=== PATIENT | female | born 1995 | race Caucasian/White ===

== ENCOUNTER 2018-11-07 02:56 | Emergency (ER) | payer OTHER ==
[2018-11-07] MEDS ORDERED: NORMAL SALINE 1000 ML 1,000 ML IV ONE ×2 (03:26→05:46)
[2018-11-07] MEDS ORDERED: ONDANSETRON HCL INJ/PF 4 MG/2 ML SDV IV ONE (03:27)
--- NOTE | 2018-11-07 03:34 | ER Document Report ---
ED General - General Chief Complaint: Dizziness Stated Complaint: DIZZINESS Time Seen by Provider: 11/07/18 03:26 Information source: Patient Notes: Patient is a 22-year-old female presents to the emergency department with a chief complaint of dizziness. States that she has been nauseous and vomiting since yesterday morning. She also complains of a headache, cramping in her fingers, abdominal pain, and chest pains when she breathes. She states this has happened before, but the last time was in January. She states her anxiety causes her to have these symptoms and she has been admitted to the hospital for intractable vomiting before. She is not currently on any anxiety medication. She was prescribed lorazepam but does not want to take it. She is a current every day cigarette smoker and she also smokes marijuana. She states she has been smoking marijuana for quite a few years. She states that she smokes marijuana to help increase her appetite. She drinks 2 glasses of wine every other day. She denies other recreational drug use. TRAVEL OUTSIDE OF THE [place] IN LAST 30 DAYS: No - Related Data Allergies/Adverse Reactions: No Known Allergies Allergy (Verified 11/07/18 04:08) Past Medical History - General Information source: Patient - Social History Smoking Status: Current Every Day Smoker Frequency of alcohol use: Every other day Drug Abuse: Marijuana Family History: Reviewed & Not Pertinent Review of Systems - Review of Systems Notes: REVIEW OF SYSTEMS: CONSTITUTIONAL : Denies recent illness. Denies recent unintentional weight loss. Denies fever, chills, or sweats. EENT: Denies eye, ear, throat, or mouth pain, discharge, or symptoms. Denies nasal or sinus congestion. CARDIOVASCULAR: See HPI RESPIRATORY: Denies shortness of breath, cough, congestion, difficulty breathing , or wheezing. GASTROINTESTINAL: See HPI. GENITOURINARY: Denies difficulty urinating, burning, blood in urine, urgency or frequency. MUSCULOSKELETAL: Denies neck and back pain. Denies joint pain or swelling. SKIN: Denies rash, itchiness, or lesions HEMATOLOGIC : Denies easy bruising or bleeding. LYMPHATIC: Denies swollen, painful, enlarged glands. NEUROLOGICAL: Denies no numbness or tingling denies weakness. Denies headache. Denies altered mental status. Denies alteration in speech. PSYCHIATRIC: Denies stress, anxiety, alteration in sleep patterns, or depression. All other systems reviewed and negative. Physical Exam - Vital signs Vitals: Temp Pulse Resp BP Pulse Ox 97.4 F 97 20 104/73 98 11/07/18 03:07 11/07/18 03:07 11/07/18 03:07 11/07/18 03:07 11/07/18 03:07 - Notes Notes: PHYSICAL EXAMINATION: GENERAL: Appears well, healthy, well-nourished, no acute distress. HEAD: Normocephalic, atraumatic. EYES: PERRL, conjunctiva normal, all extraocular movements intact, sclera nonicteric ENT: Moist mucous membranes. NECK: Supple, no noticeable swelling, redness, rash. Normal range of motion. LUNGS: Equal breath sounds bilaterally and clear to auscultation. No wheezes rales or rhonchi. CARDIOVASCULAR: S1-S2, regular rate, regular rhythm. Radial pulses 2+, normal. ABDOMEN: Normoactive bowel sounds. Soft, tender left upper quadrant, no guarding, no rebound tenderness, and no masses palpated. EXTREMITIES: Normal strength and range of motion, no pitting or edema. No cyanosis. NEUROLOGICAL: Moves all extremities upon command. Strength 5/5 in all extremities. PSYCH: Normal mood, normal affect. SKIN: Warm, dry. No rash, lesions, ulcerations noted. Normal skin turgor. Course - Re-evaluation Re-evalutation: 11/07/18 04:33 Patient states that her pain does feel better and her headache went away, but she had another episode of nausea and vomiting. Her labs show leukocytosis with a shift to the left. Her chemistries are unremarkable. She has been informed that she needs to provide urine for further evaluation. 11/07/18 05:30 Patient's urine analysis shows market dehydration. She will be given 1 more liter of saline to help with hydration. 11/07/18 06:00 Patient continues to have nausea and vomiting despite Zofran and Reglan. I spoke with Dr. Daniel in regards to this case and he recommends giving her Haldol. She will be given Haldol 5 mg IM to help with her symptoms. 11/07/18 06:34 I have reassessed the patient and she states she feels better. If she is able to tolerate p.o. fluids, she may be discharged. Report was given to DOUGLAS Farris. - Vital Signs Vital signs: Temp Pulse Resp BP Pulse Ox 97.4 F 97 20 104/73 98 11/07/18 03:07 11/07/18 03:07 11/07/18 03:07 11/07/18 03:07 11/07/18 03:07 - Laboratory Result Diagrams: 11/07/18 03:35 11/07/18 03:35 Laboratory results interpreted by me: 11/07/18 11/07/18 11/07/18 03:35 03:35 03:35 WBC 18.6 H Seg Neuts % (Manual) 93 H Lymphocytes % (Manual) 4 L Monocytes % (Manual) 2 L Abs Neuts (Manual) 17.3 H Anion Gap 21 H BUN 27 H Glucose 156 H Calcium 11.4 H AST 42 H Total Protein 9.3 H Albumin 5.5 H Urine Protein Urine Glucose (UA) Urine Ketones 11/07/18 04:59 WBC Seg Neuts % (Manual) Lymphocytes % (Manual) Monocytes % (Manual) Abs Neuts (Manual) Anion Gap BUN Glucose Calcium AST Total Protein Albumin Urine Protein 30 H Urine Glucose (UA) 50 H Urine Ketones 80 H Discharge - Discharge Clinical Impression: Nausea & vomiting Qualifiers: Vomiting type: unspecified Vomiting Intractability: unspecified Qualified Code( s): R11.2 - Nausea with vomiting, unspecified Abdominal pain Qualifiers: Abdominal location: generalized Qualified Code(s): R10.84 - Generalized abdominal pain Cyclic vomiting syndrome Qualifiers: Vomiting Intractability: unspecified Nausea presence: with nausea Qualified Code(s): G43.A0 - Cyclical vomiting, not intractable Condition: Stable Disposition: HOME, SELF-CARE Additional Instructions: You have been seen in the emergency department for nausea, vomiting, abdominal pain, and chest pains. The most likely cause of your symptoms are due to your marijuana use. You are also dehydrated, therefore you received IV fluids to help. You are being sent home with a medication called Phenergan. You may use this medication for nausea and vomiting. If you develop nausea and vomiting again, or have symptoms that are worrisome to you, please return to the emergency department. Prescriptions: Promethazine HCl [Phenergan 25 mg Tablet] 1 - 2 tab PO Q6H PRN #15 tablet PRN Reason:
[2018-11-07] MEDS ORDERED: MORPHINE SULFATE 10 MG/ML INJ IV ONE (03:58)
[2018-11-07 04:01] LABS: HEMATOCRIT 43.5 % (36.0-47.0); HEMOGLOBIN 15.1 g/dL (12.0-15.5); MEAN CORPUSCULAR HEMOGLOBIN 31.8 pg (27.0-33.4); MEAN CORPUSCULAR HGB CONC 34.7 g/dL (32.0-36.0); MEAN CORPUSCULAR VOLUME 92 fl (80-97); PLATELET COUNT 370 10^3/uL (150-450); RED BLOOD COUNT 4.75 10^6/uL (3.72-5.28); RED CELL DISTRIBUTION WIDTH 12.7 % (11.5-14.0); WHITE BLOOD COUNT 18.6 10^3/uL (4.0-10.5)
[2018-11-07 04:16] LABS: BLOOD UREA NITROGEN 27 mg/dL (7-20); CALCIUM 11.4 mg/dL (8.4-10.2); GLUCOSE 156 mg/dL (75-110); POTASSIUM 4.3 mmol/L (3.6-5.0)
[2018-11-07 04:20] LABS: ABSOLUTE LYMPHOCYTES# (MANUAL) 0.7 10^3/uL (0.5-4.7); ABSOLUTE MONOCYTES # (MANUAL) 0.4 10^3/uL (0.1-1.4); ABSOLUTE NEUTROPHILS# (MANUAL) 17.3 10^3/uL (1.7-8.2); BASOPHILS % (MANUAL) 1 % (0-2); EOSINOPHILS % (MANUAL) 0 % (0-6); LYMPHOCYTES % (MANUAL) 4 % (13-45); MONOCYTES % (MANUAL) 2 % (3-13); SEGMENTED NEUTROPHILS % (MAN) 93 % (42-78); TOTAL CELLS COUNTED 100
[2018-11-07 04:22] LABS: CARBON DIOXIDE 24 mmol/L (22-30); CHLORIDE 99 mmol/L (98-107); SODIUM 144.3 mmol/L (137-145)
[2018-11-07 04:23] LABS: ANION GAP 21 (5-19); HELMET CELLS SLIGHT; POIKILOCYTOSIS 1+; SCHISTOCYTES 1+; TEAR DROP CELLS 2+; TOXIC GRANULATION SLIGHT; TOXIC VACUOLATION PRESENT
[2018-11-07 04:24] LABS: PLATELET COMMENT ADEQUATE
[2018-11-07] MEDS ORDERED: METOCLOPRAMIDE HCL INJ/PF 10 MG/2 ML SDV IV ONE (04:50)
[2018-11-07 05:41] LABS: APPEARANCE,URINE SLIGHTLY-CLOUDY; BILIRUBIN,URINE NEGATIVE (NEGATIVE); COLOR,URINE YELLOW; GLUCOSE, URINE 50 mg/dL (NEGATIVE); KETONES,URINE 80 mg/dL (NEGATIVE); LEUKOCYTE ESTERASE,URINE NEGATIVE (NEGATIVE); NITRITE,URINE NEGATIVE (NEGATIVE); PROTEIN,URINE 30 mg/dL (NEGATIVE); URINE SPECIFIC GRAVITY 1.029; UROBILINOGEN,URINE NEGATIVE mg/dL (<2.0)
[2018-11-07] MEDS ORDERED: LIDOCAINE 2% VISCOUS SOLN 20 ML UDCUP PO ONE (05:54)
[2018-11-07] MEDS ORDERED: METOCLOPRAMIDE HCL ORAL SOLN 10 MG/10 ML UDCUP PO ONE (05:54)
[2018-11-07] MEDS ORDERED: MAG HYDROX/AL HYDROX/SIMETH SUSP 30 ML UDCUP PO ONE (05:54)
[2018-11-07] MEDS ORDERED: HALOPERIDOL LACTATE INJ 5 MG/1 ML VIAL IM ONE (06:00)
[2018-11-07 06:13] LABS: ALANINE AMINOTRANSFERASE 30 U/L (9-52); ALBUMIN 5.5 g/dL (3.5-5.0); ALKALINE PHOSPHATASE 91 U/L (38-126); ASPARTATE AMINO TRANSFERASE 42 U/L (14-36); BILIRUBIN,DIRECT 0.4 mg/dL (0.0-0.4); BILIRUBIN,TOTAL 0.8 mg/dL (0.2-1.3); TOTAL PROTEIN 9.3 g/dL (6.3-8.2)
[2018-11-07] MEDS ORDERED: FAMOTIDINE 20 MG TABLET PO ONE (06:45)
[2018-11-07 07:14] VITALS: BP 113/83
== END 2018-11-07 07:15 | disposition home or self-care (01) ==
LOC: ER 02:56
DX: G43.A0 Cyclical vomiting, in migraine, not intractable (principal); E86.0 Dehydration; R10.84 Generalized abdominal pain; F41.9 Anxiety disorder, unspecified; T42.4X6A Underdosing of benzodiazepines, initial encounter; Z91.128 Patient's intentional underdosing of medication regimen for other reason; Z91.14 Patient's other noncompliance with medication regimen; R42 Dizziness and giddiness; R51 Headache; R25.2 Cramp and spasm; R07.1 Chest pain on breathing; F17.210 Nicotine dependence, cigarettes, uncomplicated; F12.10 Cannabis abuse, uncomplicated; D72.829 Elevated white blood cell count, unspecified
CPT/HCPCS: 99284; 96372; 96361; 96374; 96375; 36415; 85025; 81025; 80076; 80048; 81001; J1630; J2765; J2270; J2405; J7030

== ENCOUNTER 2018-11-08 00:58 | Emergency (ER) | payer OTHER ==
[2018-11-08] MEDS ORDERED: LIDOCAINE 2% VISCOUS SOLN 20 ML UDCUP PO ONE (01:37)
[2018-11-08] MEDS ORDERED: METOCLOPRAMIDE HCL ORAL SOLN 10 MG/10 ML UDCUP PO ONE (01:37)
[2018-11-08] MEDS ORDERED: LORAZEPAM INJ 2 MG/1 ML VIAL IV ONE (01:37)
[2018-11-08] MEDS ORDERED: NORMAL SALINE 1000 ML 1,000 ML IV ONE ×2 (01:37→02:46)
[2018-11-08] MEDS ORDERED: MAG HYDROX/AL HYDROX/SIMETH SUSP 30 ML UDCUP PO ONE (01:37)
--- NOTE | 2018-11-08 01:39 | ER Document Report ---
ED GI/ - General Chief Complaint: Vomiting Stated Complaint: ANXIETY SYMPTOMS Time Seen by Provider: 11/08/18 01:29 Notes: Patient is a 22-year-old female that comes to the emergency department for chief complaint of vomiting, upper abdominal pain that goes up into her chest, intermittent tingling sensation in her hands. She was seen yesterday for vomiting, prescribed Phenergan, she states she was unable to fill this. She denies lower abdominal pain, vaginal bleeding or discharge. She denies fever or flank pain. She smokes, drinks a glass of wine every other day, smokes marijuana, denies any other recreational drugs. She has had a cholecystectomy. She denies any daily medications, denies surgery otherwise or other medical history. TRAVEL OUTSIDE OF THE [place] IN LAST 30 DAYS: No - Related Data Allergies/Adverse Reactions: No Known Allergies Allergy (Verified 11/07/18 04:08) Past Medical History - General Information source: Patient - Social History Smoking Status: Current Every Day Smoker Smoking Education Provided: Yes - <3 min Frequency of alcohol use: None Drug Abuse: None Lives with: Family Family History: Reviewed & Not Pertinent Renal/ Medical History: Denies: Hx Peritoneal Dialysis GI Medical History: Reports: Hx Gastroesophageal Reflux Disease Past Surgical History: Reports: Hx Cholecystectomy Review of Systems - Review of Systems Constitutional: No symptoms reported EENT: No symptoms reported Cardiovascular: No symptoms reported Respiratory: No symptoms reported Gastrointestinal: See HPI Genitourinary: No symptoms reported Female Genitourinary: No symptoms reported Musculoskeletal: No symptoms reported Skin: No symptoms reported Hematologic/Lymphatic: No symptoms reported Neurological/Psychological: No symptoms reported Physical Exam - Vital signs Vitals: Temp Pulse Resp BP Pulse Ox 98.2 F 73 26 H 111/74 100 11/08/18 01:07 11/08/18 01:07 11/08/18 01:07 11/08/18 01:07 11/08/18 01:07 - Notes Notes: GENERAL: Alert, interacts well. No acute distress. HEAD: Normocephalic, atraumatic. EYES: Pupils equal, round, and reactive to light. Extraocular movements intact. ENT: Oral mucosa dry, tongue midline. Oropharynx unremarkable. Airway patent. Nares patent, no nasal septal hematoma, TM's intact. NECK: Full range of motion. Supple. Trachea midline. LUNGS: Clear to auscultation bilaterally, no wheezes, rales, or rhonchi. No respiratory distress. HEART: Regular rate and rhythm. No murmur ABDOMEN: Mild generalized upper abdominal tenderness, nonspecific, no guarding, lower abdomen is benign. GENITOURINARY: Deferred EXTREMITIES: Moves all 4 extremities spontaneously. No edema, normal radial and dorsalis pedis pulses bilaterally. No cyanosis. BACK: no cervical, thoracic, lumbar midline tenderness. No saddle anesthesia, normal distal neurovascular exam. NEUROLOGICAL: Alert and oriented x3. Normal speech. [cranial nerves II through XII grossly intact]. PSYCH: Normal affect, normal mood. SKIN: Warm, dry, normal turgor. No rashes or lesions noted. Course - Re-evaluation Re-evalutation: Leukocytosis has improved since yesterday. CBC generally unremarkable otherwise. Chemistry unremarkable with no acidosis. Lipase is normal, LFTs unremarkable. Urinalysis shows dehydration, nonspecific otherwise. test is negative. No specific findings other than dehydration. Patient is not tachycardic, not in distress, her abdomen is actually benign except for mild upper abdominal tenderness. Patient was given Haldol after she vomited the GI cocktail. After Haldol, IV fluids, patient is feeling much better. Tolerated Carafate and Pepcid p.o. without any difficulty. Patient drink fluids, ate crackers, reports feeling much improved. I had a long conversation with patient about cannabis use, cyclic vomiting syndrome, gastritis. Discussed follow-up and return precautions. Patient and family member states understanding and agreement. - Vital Signs Vital signs: Temp Pulse Resp BP Pulse Ox 99.1 F 75 17 121/75 99 11/08/18 05:21 11/08/18 05:21 11/08/18 05:21 11/08/18 05:21 11/08/18 05:21 - Laboratory Result Diagrams: 11/08/18 01:43 11/08/18 01:43 Laboratory results interpreted by me: 11/08/18 11/08/18 11/08/18 01:43 01:43 02:10 WBC 15.7 H Seg Neutrophils % 88.5 H Lymphocytes % 7.0 L Absolute Neutrophils 13.9 H AST 46 H Urine Protein 30 H Urine Ketones 80 H Urine Blood MODERATE H Urine Urobilinogen 2.0 H Ur Leukocyte Esterase TRACE H Discharge - Discharge Clinical Impression: Upper abdominal pain, Dehydration Nausea & vomiting Qualifiers: Vomiting type: unspecified Vomiting Intractability: non-intractable Qualified Code(s): R11.2 - Nausea with vomiting, unspecified Condition: Stable Disposition: HOME, SELF-CARE Additional Instructions: Your evaluation shows dehydration, and you most likely have inflammation of the upper gastrointestinal tract (gastritis). Is also strongly suggested that you have cyclic vomiting syndrome. Avoid marijuana smoking as this can cause the symptoms. Start with bland food, slowly progress. Take nausea medication as prescribed, take Pepcid as prescribed. Follow with primary care. Return if you worsen including vomiting that is not controlled, vomiting blood, severe abdominal pain, black stools, or any other concerning symptoms. Prescriptions: Famotidine [Pepcid 20 mg Tablet] 20 mg PO BID #20 tablet Promethazine HCl [Phenergan 25 mg Tablet] 25 mg PO Q6H PRN #20 tablet PRN Reason:
[2018-11-08 01:51] LABS: ABSOLUTE LYMPHOCYTES (AUTO) 1.1 10^3/uL (0.5-4.7); ABSOLUTE MONOCYTES (AUTO) 0.7 10^3/uL (0.1-1.4); ABSOLUTE NEUT (AUTO) 13.9 10^3/uL (1.7-8.2); BASOPHILS % (AUTO) 0.1 % (0-2); HEMATOCRIT 40.1 % (36.0-47.0); HEMOGLOBIN 13.9 g/dL (12.0-15.5); MEAN CORPUSCULAR HEMOGLOBIN 32.1 pg (27.0-33.4); MEAN CORPUSCULAR HGB CONC 34.5 g/dL (32.0-36.0); MEAN CORPUSCULAR VOLUME 93 fl (80-97); MONOCYTES % (AUTO) 4.4 % (3-13); PLATELET COUNT 276 10^3/uL (150-450); RED BLOOD COUNT 4.32 10^6/uL (3.72-5.28); RED CELL DISTRIBUTION WIDTH 12.5 % (11.5-14.0); SEGMENTED NEUTROPHILS % (AUTO) 88.5 % (42-78); TOTAL CELLS COUNTED % (AUTO) 100 %; WHITE BLOOD COUNT 15.7 10^3/uL (4.0-10.5)
[2018-11-08 02:20] LABS: ALANINE AMINOTRANSFERASE 31 U/L (9-52); ALKALINE PHOSPHATASE 77 U/L (38-126); ANION GAP 15 (5-19); ASPARTATE AMINO TRANSFERASE 46 U/L (14-36); BILIRUBIN,DIRECT 0.4 mg/dL (0.0-0.4); BILIRUBIN,TOTAL 0.7 mg/dL (0.2-1.3); BLOOD UREA NITROGEN 17 mg/dL (7-20); CALCIUM 10.2 mg/dL (8.4-10.2); CARBON DIOXIDE 27 mmol/L (22-30); CHLORIDE 102 mmol/L (98-107); GLUCOSE 100 mg/dL (75-110); LIPASE 108.3 U/L (23-300); POTASSIUM 4.2 mmol/L (3.6-5.0); SODIUM 144.4 mmol/L (137-145); TOTAL PROTEIN 8.2 g/dL (6.3-8.2)
[2018-11-08] MEDS ORDERED: HALOPERIDOL LACTATE INJ 5 MG/1 ML VIAL IM ONE (02:21)
[2018-11-08 02:23] LABS: APPEARANCE,URINE SLIGHTLY-CLOUDY; BILIRUBIN,URINE NEGATIVE (NEGATIVE); COLOR,URINE YELLOW; GLUCOSE, URINE NEGATIVE (NEGATIVE); KETONES,URINE 80 mg/dL (NEGATIVE); LEUKOCYTE ESTERASE,URINE TRACE (NEGATIVE); NITRITE,URINE NEGATIVE (NEGATIVE); PROTEIN,URINE 30 mg/dL (NEGATIVE); URINE SPECIFIC GRAVITY 1.033
[2018-11-08 02:35] LABS: URINE AMPHETAMINES SCREEN NEGATIVE; URINE BARBITURATES SCREEN NEGATIVE; URINE BENZODIAZEPINES SCREEN NEGATIVE; URINE COCAINE SCREEN NEGATIVE; URINE MARIJUANA (THC) SCREEN UNCONFIRMED POSITIVE; URINE METHADONE SCREEN NEGATIVE; URINE PHENCYCLIDINE SCREEN NEGATIVE
[2018-11-08] MEDS ORDERED: FAMOTIDINE 20 MG TABLET PO ONE (02:52)
[2018-11-08] MEDS ORDERED: SUCRALFATE 1 GM TABLET PO ONE (02:52)
[2018-11-08] MEDS ORDERED: ONDANSETRON ODT 4 MG TAB (6 TAB/ER DISP) PO PRN (05:10)
[2018-11-08 05:26] VITALS: BP 121/75
== END 2018-11-08 05:35 | disposition home or self-care (01) ==
LOC: ER 00:58
DX: R11.2 Nausea with vomiting, unspecified (principal); R10.10 Upper abdominal pain, unspecified; E86.0 Dehydration; R20.0 Anesthesia of skin; F17.200 Nicotine dependence, unspecified, uncomplicated; F12.90 Cannabis use, unspecified, uncomplicated; Z90.49 Acquired absence of other specified parts of digestive tract
CPT/HCPCS: 99283; 96372; 96361; 96374; 36415; 83690; 84703; 85025; 80053; 81001; 80307; J1630; J3490; J2060; J7030